=== PATIENT | female | born 1960 | race Caucasian/White ===

== ENCOUNTER → 2018-10-30 | Outpatient (REF) | payer OTHER | LOC: M LAB REF 16:51 | PROVIDERS: ATTEND Internal Medicine | DX: Z98.84 Bariatric surgery status (principal); D51.9 Vitamin B12 deficiency anemia, unspecified ==

== ENCOUNTER → 2019-10-23 | Outpatient (REF) | payer OTHER ==
[2019-10-23 14:06] LABS: FOLATE > 24.0 NG/ML; VITAMIN B12 LEVEL 1371 PG/ML
[2019-10-23 17:20] LABS: FERRITIN 39 NG/ML (8-252)
== END ==
LOC: M LAB REF 13:14
PROVIDERS: ATTEND Internal Medicine
DX: Z98.84 Bariatric surgery status (principal)

== ENCOUNTER → 2020-05-03 | Outpatient (CLI) | payer OTHER ==
--- NOTE | 2020-05-03 08:50 | REP ---
Left ankle series: Four views. History: Contusion. Findings: Four views left ankle demonstrate an intact ankle mortise. There is diffuse anterolateral and medial soft tissue swelling. There is soft tissue swelling posteriorly as well including the pretibial fat and of the posterior subdermal soft tissues. There is Achilles calcaneal spurring. No fractures seen. Impression: No fracture noted. Diffuse ankle swelling periarticular and pre-Achilles. Clinical correlation is suggested. Achilles tendon injury is suspected, MRI or ultrasound may be helpful. Electronically Signed by Justin Ma MD 05/03/2020 08:40 A
== END ==
LOC: M WUC 08:26
PROVIDERS: ATTEND Physician Assistant
DX: M25.572 Pain in left ankle and joints of left foot (principal)

== ENCOUNTER → 2021-01-26 | Outpatient (REF) | payer OTHER ==
[2021-01-26 18:46] LABS: FERRITIN 65 NG/ML (8-252)
[2021-01-26 18:54] LABS: FOLATE > 24.0 NG/ML; VITAMIN B12 LEVEL > 2000 PG/ML
== END ==
LOC: M LAB REF 17:49
PROVIDERS: ATTEND Internal Medicine
DX: Z98.84 Bariatric surgery status (principal)

== ENCOUNTER → 2021-02-03 | Outpatient (CLI) | payer OTHER ==
--- NOTE | 2021-02-03 17:13 | REPMRS ---
Patient History The patient states she had a clinical breast exam in January 2021. Patient is postmenopausal. Family history of breast cancer at age 58 in paternal grandmother. Benign US guided breast biopsy of the left breast, February 13, 2013. Took estrogen for 1 year. Digital Woman Screen Mammo: February 03, 2021 - Exam #: [id number] Bilateral CC and MLO view(s) were taken. Technologist: RT David Prior study comparison: May 27, 2013, left breast digital mammo diagnostic unilateral, performed at [facility]. February 13, 2013, left breast digital mammo diagnostic unilateral, performed at [facility]. July 17, 2012, bilateral digital mammo screening bilat, performed at [facility]. June 23, 2011, bilateral digital mammo screening bilat performed at [facility] . May 31, 2010, bilateral digital mammo screening bilat, performed at [facility]. FINDINGS: There are scattered fibroglandular densities. The Volpara volumetric breast density category is:B. There is a needle biopsy marker clip in the left breast. There has been no change in the appearance of the mammogram from the prior studies. There is a mild amount of scattered fibroglandular density which is fairly symmetric. There is no interval development of dominant mass, architectural distortion, or grouped microcalcification suggestive of malignancy. 3-D tomosynthesis shows no additional findings. Assessment: BI-RADS/ACR category 2 mammogram. Benign Findings. Recommendation Routine screening mammogram of both breasts in 1 year (for women over age 40). This patient's [facility] Lifetime Breast Cancer Risk is estimated at 14.4 %. This mammogram was interpreted with the aid of an FDA-approved computer-aided dectection system. Electronically Signed By: Michael Ma MD 02/03/21 [id number]
--- NOTE | 2021-02-03 17:47 | DEXAMM ---
INDICATION: M81.8 OSTEOPOROSIS W/O FX. COMPARISON: Comparison study September 08, 2017 and June 23, 2011.. TECHNIQUE: Bone density was measured using dual-energy x-ray absorptionmetry (DEXA). FINDINGS: AP SPINE L1-L4 BMD 0.953 g/cm2 Young Adult T-Score -2.0 Age Matched Z-Score -0.7. LT FEMUR, TOTAL BMD 0.742 g/cm2 Young Adult T-Score -2.1 Age Matched Z-Score -1.2. LT NECK BMD 0.679 g/cm2 Young Adult T-Score -2.6 Age Matched Z-Score -1.3. RT FEMUR, TOTAL BMD 0.829 g/cm2 Young Adult T-Score -1.4 Age Matched Z-Score -0.5. RT NECK BMD 0.777 g/cm2 Young Adult T-Score -1.9 Age Matched Z-Score -0.6. IMPRESSION: There is low bone density of the spine. There is osteoporosis of the left hip. There is low bone density of the right hip. The density of the spine has decreased 16.3% since the initial exam on June 23, 2011. The density of the spine increased 2.1% since most recent exam on September 08, 2017. The density of the left hip has decreased 18.1% since initial exam on June 23, 2011. The density of the left hip has decreased 10.0% since most recent exam on September 08, 2017. The density of the right hip has decreased 11.4% since the initial exam on June 23, 2011. The density of the right hip has decreased 4.6% since the most recent exam on September 08, 2017. FOLLOW-UP: Recommendation for the next bone density exam: 2 years. <Electronically signed by Michael Ma > 02/03/21 [id number]
== END ==
LOC: M WHC 15:04
PROVIDERS: ATTEND Internal Medicine
DX: Z12.31 Encounter for screening mammogram for malignant neoplasm of breast (principal); M81.8 Other osteoporosis without current pathological fracture; Z80.3 Family history of malignant neoplasm of breast

== ENCOUNTER 2021-03-18 15:16 | Outpatient (CLI) | payer OTHER ==
[~2021-03-18] VITALS: Ht 172.7 cm; Wt 99.0 kg
[~2021-03-18 15:16] MED LIST: ZOLEDRONIC ACID 5 MG in IV 1 EA IV ONE
[2021-03-18 15:45] VITALS: BP 144/82
[2021-03-18 16:19] VITALS: BP 138/81
== END 2021-03-18 16:20 | disposition home or self-care (01) ==
LOC: M INFU 15:16
PROVIDERS: ATTEND Internal Medicine
DX: M81.0 Age-related osteoporosis without current pathological fracture (principal)
CPT/HCPCS: 96365; J3489

== ENCOUNTER → 2022-01-31 | Outpatient (REF) | payer OTHER ==
[2022-01-31 13:25] LABS: FERRITIN 57 NG/ML (8-252)
[2022-01-31 13:30] LABS: FOLATE > 24.0 NG/ML; VITAMIN B12 LEVEL > 2000 PG/ML
== END ==
LOC: M LAB REF 12:10
PROVIDERS: ATTEND Internal Medicine
DX: Z98.84 Bariatric surgery status (principal)

== ENCOUNTER 2022-04-22 13:38 | Outpatient (CLI) | payer OTHER ==
[~2022-04-22] VITALS: Ht 172.7 cm; Wt 105.7 kg
[2022-04-22 14:00] VITALS: BP 129/67
[2022-04-22] MEDS ORDERED: ZOLEDRONIC ACID 5 MG in IV 1 EA IV ONE (14:00)
[2022-04-22 14:45] VITALS: BP 133/85
== END 2022-04-22 15:00 | disposition home or self-care (01) ==
LOC: M INFU 13:38
PROVIDERS: ATTEND Internal Medicine
DX: M81.0 Age-related osteoporosis without current pathological fracture (principal); Z88.5 Allergy status to narcotic agent; Z88.6 Allergy status to analgesic agent
CPT/HCPCS: 96365; J3489

== ENCOUNTER → 2023-02-06 | Outpatient (CLI) | payer OTHER | LOC: M WHC 09:33 | PROVIDERS: ATTEND Internal Medicine | DX: Z12.31 Encounter for screening mammogram for malignant neoplasm of breast (principal); M81.0 Age-related osteoporosis without current pathological fracture; M85.89 Other specified disorders of bone density and structure, multiple sites ==

== ENCOUNTER → 2023-03-20 | Outpatient (REF) | payer OTHER ==
[2023-03-20 16:31] LABS: FERRITIN 32.6 NG/ML (7.3-270.7)
== END ==
LOC: M LAB REF 14:19
PROVIDERS: ATTEND Internal Medicine
DX: Z98.84 Bariatric surgery status (principal)

== ENCOUNTER → 2023-04-25 | Outpatient (REF) | payer OTHER | LOC: M LAB REF 17:10 | PROVIDERS: ATTEND Internal Medicine | DX: N39.0 Urinary tract infection, site not specified (principal) ==

== ENCOUNTER → 2023-07-24 | Outpatient (REF) | payer OTHER | LOC: M LAB REF 16:31 | PROVIDERS: ATTEND Internal Medicine | DX: N39.0 Urinary tract infection, site not specified (principal) ==

== ENCOUNTER → 2023-08-03 | Outpatient (CLI) | payer OTHER | LOC: M CARPUL 13:52 | PROVIDERS: ATTEND Internal Medicine | DX: R01.1 Cardiac murmur, unspecified (principal); I08.3 Combined rheumatic disorders of mitral, aortic and tricuspid valves ==

== ENCOUNTER → 2023-10-18 | Outpatient (REF) | payer OTHER | LOC: M LAB REF 18:33 | PROVIDERS: ATTEND Student in an Organized Health Care Education/Training Program | DX: R30.0 Dysuria (principal) ==

== ENCOUNTER → 2024-01-01 | Outpatient (CLI) | payer OTHER | LOC: M EKG 14:39 | PROVIDERS: ATTEND Internal Medicine Cardiovascular Disease | DX: I47.10 Supraventricular tachycardia, unspecified (principal) ==

== ENCOUNTER → 2024-01-04 | Outpatient (CLI) | payer OTHER | LOC: M PLAIMG 10:41 | PROVIDERS: ATTEND Internal Medicine Cardiovascular Disease | DX: I35.1 Nonrheumatic aortic (valve) insufficiency (principal) ==

== ENCOUNTER → 2024-02-08 | Outpatient (CLI) | payer OTHER | LOC: M WHC 12:59 | PROVIDERS: ATTEND Internal Medicine | DX: Z12.31 Encounter for screening mammogram for malignant neoplasm of breast (principal) ==

== ENCOUNTER → 2024-04-09 | Outpatient (REF) | payer OTHER ==
[2024-04-09 14:28] LABS: FOLATE > 24.0 NG/ML (>5.4)
[2024-04-09 14:29] LABS: FERRITIN 44.3 NG/ML (7.3-270.7); VITAMIN B12 LEVEL 1246 PG/ML (211-911)
== END ==
LOC: M LAB REF 12:41
PROVIDERS: ATTEND Internal Medicine
DX: Z79.84 Long term (current) use of oral hypoglycemic drugs (principal)

== ENCOUNTER → 2024-08-17 | Outpatient (REF) | payer OTHER | LOC: M LAB REF 21:18 | PROVIDERS: ATTEND Physician Assistant Medical | DX: N39.0 Urinary tract infection, site not specified (principal) ==

== ENCOUNTER → 2024-10-24 | Outpatient (CLI) | payer OTHER | LOC: M EKG 15:01 | PROVIDERS: ATTEND Internal Medicine Cardiovascular Disease | DX: I47.10 Supraventricular tachycardia, unspecified (principal); Z53.9 Procedure and treatment not carried out, unspecified reason ==

== ENCOUNTER → 2025-02-13 | Outpatient (CLI) | payer OTHER | LOC: M WHC 11:00 | PROVIDERS: ATTEND Internal Medicine | DX: Z12.31 Encounter for screening mammogram for malignant neoplasm of breast (principal); Z13.820 Encounter for screening for osteoporosis; R92.313 Mammographic fatty tissue density, bilateral breasts; M81.0 Age-related osteoporosis without current pathological fracture; M85.851 Other specified disorders of bone density and structure, right thigh; M85.88 Other specified disorders of bone density and structure, other site ==

== ENCOUNTER 2025-03-07 15:04 | Outpatient (CLI) | payer OTHER ==
[~2025-03-07] VITALS: Ht 175.3 cm; Wt 104.5 kg
[2025-03-07 15:18] VITALS: BP 128/68; O2SAT 95
[2025-03-07] MEDS: ZOLEDRONIC ACID 5 MG in IV 1 EA IV ONE (15:52)
[2025-03-07 16:30] VITALS: BP 125/71; O2SAT 99
== END 2025-03-07 16:30 | disposition home or self-care (01) ==
LOC: M INFU 15:04
PROVIDERS: ATTEND Internal Medicine
DX: M89.9 Disorder of bone, unspecified (principal); Z88.6 Allergy status to analgesic agent; Z88.8 Allergy status to other drugs, medicaments and biological substances
CPT/HCPCS: 96365; J3489

== ENCOUNTER → 2025-08-04 | Outpatient (REF) | payer OTHER ==
[2025-08-04 13:57] LABS: VITAMIN B12 LEVEL 1674 PG/ML (211-911)
== END ==
LOC: M LAB REF 12:30
PROVIDERS: ATTEND Internal Medicine
DX: D50.9 Iron deficiency anemia, unspecified (principal)

== ENCOUNTER → 2025-08-29 | Outpatient (REF) | payer MEDICARE | LOC: M LAB REF 14:15 | PROVIDERS: ATTEND Nurse Practitioner Family | DX: R30.0 Dysuria (principal) ==